=== PATIENT | male | born 1985 | race Caucasian/White ===

== ENCOUNTER 2017-07-17 21:46 | Emergency (ER) | payer SELFPAY ==
[~2017-07-17] VITALS: Ht 154.9 cm; Wt 58.2 kg
[2017-07-17 21:50] VITALS: BP 129/76; TEMP 98.5
[2017-07-17] MEDS ORDERED: FLEXERIL 1010 MG/TAB PO (23:15)
[2017-07-17 23:31] VITALS: PULSE 60
== END 2017-07-17 23:31 | disposition home or self-care (01) ==
LOC: COL.ER 21:46
DX: M25.511 Pain in right shoulder (principal)
CPT/HCPCS: J1885

== ENCOUNTER → 2017-11-13 | Outpatient (CLI) | payer SELFPAY ==
[~2017-11-13] MED LIST: FLEXERIL 1010 MG/TAB PO
== END ==
LOC: COL.RAD 12:41
DX: M79.641 Pain in right hand (principal); M79.642 Pain in left hand; Z87.81 Personal history of (healed) traumatic fracture; M25.50 Pain in unspecified joint; R76.8 Other specified abnormal immunological findings in serum

== ENCOUNTER → 2018-04-17 | Outpatient (CLI) | payer OTHER ==
[2018-04-18 03:12] LABS: HEPATITIS B SURFACE ANTIBODY <2.0 (()); HEPATITIS B SURFACE ANTIGEN Negative (Negative); HEPATITIS C VIRUS ANTIBODY Negative (Negative)
== END ==
LOC: COL.LAB 10:19
PROVIDERS: Internal Medicine Rheumatology
DX: Z79.899 Other long term (current) drug therapy (principal); M06.9 Rheumatoid arthritis, unspecified